=== PATIENT | female | born 1980 | race Caucasian/White ===

== ENCOUNTER 2016-10-03 07:30 | Inpatient (IN) | payer OTHER, MEDICAID ==
[~2016-10-03] VITALS: Ht 170.2 cm; Wt 74.4 kg
[2016-10-03 07:30] VITALS: BP_SYST 171
[~2016-10-03 07:30] MED LIST: DULO60CA41 PO; NUVARING VG; ZIPR20CA2 PO
[2016-10-03] MEDS ORDERED: MAGNESIUM SULFATE IN WATER 100 ML IV ONE ×2 (07:45→08:02)
[2016-10-03] MEDS ORDERED: MAGNESIUM SULFATE 100 ML IV ONE (07:56)
[2016-10-03] MEDS ORDERED: MORPHINE 4 MG/ML INJ. SYRINGE IVP ONE (08:00)
[2016-10-03] MEDS ORDERED: hydrALAZINE HCL 20 MG/ML VIAL IVP ONE (08:00)
[2016-10-03] MEDS ORDERED: ONDANSETRON HCL 4 MG/2 ML VIAL IVP ONE (08:00)
[2016-10-03 08:01] LABS: BASOPHILS # (AUTO) 0.1 K/uL (0.0-0.2); EOSINOPHILS # (AUTO) 0.1 K/uL (0.0-0.4); EOSINOPHILS % (AUTO) 0.7 % (0.0-4.0); HEMATOCRIT 33.1 % (36-48); HEMOGLOBIN 11.3 g/dL (12.0-16.0); LYMPHOCYTES # (AUTO) 1.8 K/uL (1.0-5.5); LYMPHOCYTES % (AUTO) 13.7 % (20.5-51.5); MEAN CORPUSCULAR HEMOGLOBIN 31 pg (27-31); MEAN CORPUSCULAR HGB CONC 34 % (32-36); MEAN CORPUSCULAR VOLUME 91 fL (79.0-98.0); MONOCYTES # (AUTO) 0.8 K/uL (0.0-1.0); MONOCYTES % (AUTO) 5.8 % (1.7-9.3); NEUTROPHILS # (AUTO) 10.3 K/uL (1.8-7.7); NEUTROPHILS % (AUTO) 78.8 % (40.0-70.0); RED BLOOD CELL COUNT(AUTO) 3.66 MIL/uL (4.2-6.2); RED CELL DISTRIBUTION WIDTH 12.9 % (9.0-15.0); WHITE BLOOD COUNT (AUTO) 13.1 K/uL (4.8-10.8)
[2016-10-03] MEDS ORDERED: OXYCODONE/ACETAMINOPHEN 5-325 TABLET PO PRN ×5 (08:15→15:30)
[2016-10-03] MEDS ORDERED: MAGNESIUM SULFATE IN WATER 500 ML IV SCH (08:15)
[2016-10-03 08:20] LABS: CREATININE 0.55 mg/dL (0.55-1.30); POTASSIUM 3.7 mmol/L (3.5-5.1)
[2016-10-03] MEDS ORDERED: PREN-89 PO (08:22)
[2016-10-03] MEDS ORDERED: LABE200T28 PO (08:22)
[2016-10-03 08:25] LABS: ALBUMIN 3.1 g/dL (3.4-4.8); TOTAL BILIRUBIN 0.2 mg/dL (0.0-1.0); TOTAL PROTEIN, SERUM 7.8 g/dL (6.4-8.3)
[2016-10-03] MEDS ORDERED: LABETALOL 100 MG/ 20ML VIAL IVP ONE (08:30)
[2016-10-03 08:45] LABS: BILIRUBIN,URINE NEGATIVE (NEGATIVE); BLOOD, URINE NEGATIVE (NEGATIVE); CLARITY/URINE CLEAR (CLEAR); COLOR,URINE YELLOW (YELLOW); GLUCOSE,URINE NEGATIVE (NEGATIVE); KETONES,URINE NEGATIVE (NEGATIVE); LEUKOCYTE ESTERASE ,URINE NEGATIVE (NEGATIVE); NITRITE, URINE NEGATIVE (NEGATIVE); PROTEIN URINE NEGATIVE (NEGATIVE); UROBILINOGEN,URINE 0.2 (0.2-1.0)
[2016-10-03 08:51] VITALS: BP_SYST 144
[2016-10-03 08:57] LABS: PLATELET COUNT (AUTO) 266 K/uL (130-430)
[2016-10-03 12:10] VITALS: BP_SYST 144
[2016-10-03] MEDS ORDERED: OXYTOCIN/NORMAL SALINE 1,000 ML IV ONE (14:31)
[2016-10-03] MEDS ORDERED: LR 1,000 ML IV SCH (14:31)
[2016-10-03] MEDS ORDERED: SIMETHICONE 80 MG TAB.CHEW PO PRN (14:45)
[2016-10-03] MEDS ORDERED: BISACODYL 10 MG/SUPPOSITORY RC PRN (14:45)
[2016-10-03] MEDS ORDERED: ANUSOL 1 EA SUPP.RECT (PREPARATION H) RC PRN (14:45)
[2016-10-03] MEDS ORDERED: LANOLIN 7 GM OINT. TP PRN (14:45)
[2016-10-03] MEDS ORDERED: MORPHINE SULFATE 10 MG/ML VIAL IVP PRN (14:45)
[2016-10-03] MEDS ORDERED: SENNOSIDES/DOCUSATE SODIUM 1 TAB TABLET(SENOKOT-S) PO PRN (14:45)
[2016-10-03] MEDS ORDERED: DOCUSATE SODIUM 100 MG CAPSULE PO PRN (14:45)
[2016-10-03] MEDS ORDERED: ACETAMINOPHEN 500 MG TABLET PO PRN (15:45)
[2016-10-03 16:35] VITALS: BP_SYST 144
[2016-10-03] MEDS ORDERED: CYCLOBENZAPRINE HCL 10 MG TABLET (FLEXERIL) PO ONE (17:00)
[2016-10-03 18:50] VITALS: BP_SYST 153
[2016-10-03] MEDS: LABETALOL HCL 100 MG TABLET PO SCH (19:47)
[2016-10-03 20:00] VITALS: BP_SYST 142
[2016-10-03] MEDS ORDERED: TEMAZEPAM 15 MG CAPSULE PO PRN (21:00)
[2016-10-03] MEDS: MAGNESIUM SULFATE IN WATER 500 ML IV SCH (22:00)
[2016-10-03] MEDS: CYCLOBENZAPRINE HCL 10 MG TABLET (FLEXERIL) PO SCH (22:05)
[2016-10-04 00:17] VITALS: BP_SYST 128
[2016-10-04] MEDS: OXYCODONE/ACETAMINOPHEN 5-325 TABLET PO PRN ×2 (00:46→12:20)
[2016-10-04] MEDS ORDERED: MAGNESIUM SULFATE IN WATER 500 ML IV ONE (01:28)
[2016-10-04] MEDS: MAGNESIUM SULFATE IN WATER 500 ML IV SCH (01:43)
[2016-10-04 04:00] VITALS: BP_SYST 138
[2016-10-04] MEDS: CYCLOBENZAPRINE HCL 10 MG TABLET (FLEXERIL) PO SCH ×3 (05:46→22:12)
[2016-10-04 06:20] LABS: BASOPHILS % (AUTO) 0.4 % (0.0-2.0); EOSINOPHILS # (AUTO) 0.2 K/uL (0.0-0.4); HEMATOCRIT 33.1 % (36-48); HEMOGLOBIN 11.3 g/dL (12.0-16.0); LYMPHOCYTES # (AUTO) 2.1 K/uL (1.0-5.5); LYMPHOCYTES % (AUTO) 21.2 % (20.5-51.5); MEAN CORPUSCULAR HEMOGLOBIN 31 pg (27-31); MEAN CORPUSCULAR HGB CONC 34 % (32-36); MEAN CORPUSCULAR VOLUME 91 fL (79.0-98.0); MONOCYTES # (AUTO) 0.6 K/uL (0.0-1.0); MONOCYTES % (AUTO) 6.3 % (1.7-9.3); NEUTROPHILS # (AUTO) 6.9 K/uL (1.8-7.7); NEUTROPHILS % (AUTO) 70.1 % (40.0-70.0); PLATELET COUNT (AUTO) 271 K/uL (130-430); RED BLOOD CELL COUNT(AUTO) 3.65 MIL/uL (4.2-6.2); RED CELL DISTRIBUTION WIDTH 12.8 % (9.0-15.0); WHITE BLOOD COUNT (AUTO) 9.8 K/uL (4.8-10.8)
[2016-10-04 06:58] LABS: ALBUMIN 2.7 g/dL (3.4-4.8); CALCIUM 7.2 mg/dL (8.4-11.0); CREATININE 0.57 mg/dL (0.55-1.30); POTASSIUM 3.4 mmol/L (3.5-5.1); TOTAL BILIRUBIN 0.3 mg/dL (0.0-1.0); TOTAL PROTEIN, SERUM 7.1 g/dL (6.4-8.3)
[2016-10-04 08:06] VITALS: BP_SYST 145
[2016-10-04] MEDS: LABETALOL HCL 100 MG TABLET PO SCH ×2 (08:41→20:48)
[2016-10-04] MEDS ORDERED: DERMOPLAST SPRAY TP PRN (11:45)
[2016-10-04 12:00] VITALS: BP_SYST 143
[2016-10-04 16:52] VITALS: BP_SYST 135
[2016-10-04 19:40] VITALS: BP_SYST 139
[2016-10-05 00:38] VITALS: BP_SYST 122
[2016-10-05 03:45] VITALS: BP_SYST 131
[2016-10-05] MEDS: CYCLOBENZAPRINE HCL 10 MG TABLET (FLEXERIL) PO SCH (05:28)
[2016-10-05] MEDS: LABETALOL HCL 100 MG TABLET PO SCH (08:16)
[2016-10-05 08:17] VITALS: BP_SYST 145
[2016-10-05 10:29] VITALS: BP_SYST 128
[2016-10-05 10:34] VITALS: BP_SYST 128
[2016-10-05 12:25] VITALS: BP_SYST 138
== END 2016-10-05 12:50 | disposition home or self-care (01) | DRG 776 ==
LOC: SED 07:30 → SMU 08:10
PROVIDERS: ADMIT Obstetrics & Gynecology; ATTEND Obstetrics & Gynecology
DX: O13.5 Gestational [pregnancy-induced] hypertension without significant proteinuria, complicating the puerperium (principal); O99.63 Diseases of the digestive system complicating the puerperium; K21.9 Gastro-esophageal reflux disease without esophagitis
CPT/HCPCS: 36415; 71010; 80053; 81003; 82962; 83735-TC; 85025; 87081; 93005; 96365; 96375; 99291; J0360; J2270; J2405; J2590; J3475

== ENCOUNTER 2018-11-07 23:53 | Emergency (ER) | payer OTHER, MEDICAID ==
[~2018-11-07] VITALS: Ht 170.2 cm; Wt 65.8 kg
[~2018-11-07 23:53] MED LIST changes: -DULO60CA41 PO; +LABE200T28 PO; -NUVARING VG; +PREN-89 PO; -ZIPR20CA2 PO
[2018-11-08] VITALS: BP_SYST 163
== END 2018-11-08 01:00 | disposition left against medical advice (07) ==
LOC: SED 23:53
DX: I10 Essential (primary) hypertension (principal); R11.0 Nausea; R42 Dizziness and giddiness; Z53.21 Procedure and treatment not carried out due to patient leaving prior to being seen by health care provider